=== PATIENT | female | born 1985 | race Two or more races ===

== ENCOUNTER 2018-12-11 10:04 | Inpatient (IN) | payer MEDICAID, OTHER ==
[~2018-12-11] VITALS: Ht 154.9 cm; Wt 83.0 kg
[2018-12-11] MEDS ORDERED: NEWBORN KIT ONE (10:22)
[2018-12-11] MEDS ORDERED: OXYTOCIN 30U/ 0.9% NaCL 500ML 500 ML ONE (10:22)
[2018-12-11] MEDS ORDERED: SODIUM CITRATE/CITRIC ACID 15 ML UDC PO ONE (10:30)
[2018-12-11] MEDS ORDERED: LACTATED RINGERS 1,000 ML IVBOLUS ONE (10:30)
[2018-12-11] MEDS ORDERED: METOCLOPRAMIDE 5 MG/ML, 2ML IV ONE (10:30)
[2018-12-11] MEDS ORDERED: SODIUM CITRATE/CITRIC ACID 15 ML UDC ONE (10:37)
[2018-12-11] MEDS ORDERED: METOCLOPRAMIDE 5 MG/ML, 2ML ONE (10:37)
[2018-12-11 10:41] LABS: BASOPHILS # (AUTO) 0.03 x10^3/uL (0-0.1); BASOPHILS % (AUTO) 0 % (0-1); EOSINOPHILS # (AUTO) 0.01 x10^3/uL (0-0.4); EOSINOPHILS % (AUTO) 0 % (1-7); LYMPHOCYTES # (AUTO) 2.31 x10^3/uL (1-3.4); LYMPHOCYTES % (AUTO) 28 % (22-44); MD NO; MEAN CORPUSCULAR HEMOGLOBIN 31.4 pg (27.0-34.8); MEAN CORPUSCULAR HGB CONC 33.2 g/dL (32.4-35.8); MEAN CORPUSCULAR VOLUME 94.4 fL (80-100); MEAN PLATELET VOLUME 9.4 fL (7.4-10.4); MONOCYTES # (AUTO) 0.47 x10^3/uL (0.2-0.8); MONOCYTES % (AUTO) 6 % (2-9); NEUTROPHILS # (AUTO) 5.39 x10^3/uL (1.8-6.8); NEUTROPHILS % (AUTO) 66 % (42-75); PLATELET COUNT 218 x10^3/uL (130-400); RED BLOOD COUNT 4.13 x10^6/uL (3.82-5.3); RED CELL DISTRIBUTION WIDTH 13.1 % (9.6-15.2)
[2018-12-11] MEDS ORDERED: morphine SULFATE/PF 1 MG/ML, 10ML ONE (11:55)
[2018-12-11] MEDS ORDERED: ONDANSETRON 2MG/ML, 2ML ONE (12:02)
[2018-12-11] MEDS ORDERED: CEFAZOLIN 1,000 MG ONE (12:02)
[2018-12-11] MEDS ORDERED: WATER-INJECTION,STERILE 10 ML IV ONE (12:02)
[2018-12-11] MEDS ORDERED: OXYTOCIN 10 UNITS/ML, 1ML ONE (12:02)
[2018-12-11] MEDS ORDERED: DEXAMETHASONE 4 MG/ML, 1ML ONE (12:02)
[2018-12-11] MEDS ORDERED: SODIUM CHLORIDE 0.9% PF 10ML ONE (12:18)
[2018-12-11] MEDS ORDERED: PHENYLEPHRINE 10 MG/ML ONE (12:18)
[2018-12-11] MEDS ORDERED: LACTATED RINGERS 1,000 ML IV SCH (13:16)
[2018-12-11] MEDS ORDERED: ONDANSETRON 2MG/ML, 2ML IV PRN (13:30)
[2018-12-11] MEDS ORDERED: MISOPROSTOL 200 MCG TABLET PR PRN (13:30)
[2018-12-11] MEDS ORDERED: MORPHINE SULFATE 4 MG/ML, 1ML IVPush PRN (13:30)
[2018-12-11] MEDS ORDERED: DIPHENHYDRAMINE 50 MG/ML, 1ML ONE (13:45)
[2018-12-11] MEDS ORDERED: KETOROLAC 30 MG/1 ML ONE (13:45)
[2018-12-11] MEDS: KETOROLAC 30 MG/1 ML IV SCH ×2 (13:58→20:27)
[2018-12-11] MEDS ORDERED: NO SEDATIVES, TRANQUILIZERS OR ANTIEMETICS XX SCH (14:30)
[2018-12-11] MEDS ORDERED: NALOXONE 0.4 MG/ML, 1ML IV PRN (14:30)
[2018-12-11] MEDS ORDERED: DIPHENHYDRAMINE 50 MG/ML, 1ML IVPush ONE (14:30)
[2018-12-11] MEDS ORDERED: EPHEDRINE 50 MG/ML, 1ML IVPush PRN (14:30)
[2018-12-11] MEDS ORDERED: DIPHENHYDRAMINE 50 MG/ML, 1ML IV PRN ×2 (14:30→20:30)
[2018-12-11] MEDS: LACTATED RINGERS 1,000 ML IV SCH ×2 (14:31→23:16)
[2018-12-11] MEDS: OXYTOCIN 30U/ 0.9% NaCL 500ML 500 ML IV SCH ×2 (14:31→23:16)
[2018-12-11 16:32] VITALS: BP 127/81
[2018-12-11] MEDS: OXYcodone/APAP 5/325MG TABLET PO PRN ×2 (17:55→22:06)
[2018-12-11 19:40] VITALS: BP 138/89
[2018-12-12 00:05] VITALS: BP 121/74
[2018-12-12] MEDS: KETOROLAC 30 MG/1 ML IV SCH ×4 (01:37→20:05)
[2018-12-12] MEDS: OXYcodone/APAP 5/325MG TABLET PO PRN ×4 (02:49→21:21)
[2018-12-12 04:22] VITALS: BP 121/75
[2018-12-12] MEDS: PRENATAL VIT/IRON/FA 1 EACH TABLET PO SCH (07:33)
[2018-12-12 07:35] VITALS: BP 118/79
[2018-12-12 08:18] LABS: BASOPHILS # (AUTO) 0.04 x10^3/uL (0-0.1); BASOPHILS % (AUTO) 1 % (0-1); EOSINOPHILS # (AUTO) 0.02 x10^3/uL (0-0.4); EOSINOPHILS % (AUTO) 0 % (1-7); LYMPHOCYTES # (AUTO) 2.25 x10^3/uL (1-3.4); LYMPHOCYTES % (AUTO) 26 % (22-44); MD NO; MEAN CORPUSCULAR HGB CONC 33.3 g/dL (32.4-35.8); MEAN CORPUSCULAR VOLUME 93.1 fL (80-100); MEAN PLATELET VOLUME 9.1 fL (7.4-10.4); MONOCYTES # (AUTO) 0.67 x10^3/uL (0.2-0.8); MONOCYTES % (AUTO) 8 % (2-9); NEUTROPHILS # (AUTO) 5.67 x10^3/uL (1.8-6.8); NEUTROPHILS % (AUTO) 66 % (42-75); PLATELET COUNT 171 x10^3/uL (130-400); RED BLOOD COUNT 3.33 x10^6/uL (3.82-5.3)
[2018-12-12 09:00] LABS: RED CELL DISTRIBUTION WIDTH 13.2 % (9.6-15.2)
[2018-12-12] MEDS: LACTATED RINGERS 1,000 ML IV SCH ×2 (09:16→19:16)
[2018-12-12] MEDS: OXYTOCIN 30U/ 0.9% NaCL 500ML 500 ML IV SCH ×2 (09:16→19:18)
[2018-12-12 12:25] VITALS: BP 125/88
[2018-12-12] MEDS: OXYcodone IR 5MG TABLET PO PRN (12:57)
[2018-12-12] MEDS ORDERED: DIPH,PERTUSS(ACELL),TET VAC/PF NC IM-VACC ONE ×2 (19:57→20:00)
[2018-12-12 20:15] VITALS: BP 119/75
[2018-12-13] MEDS: KETOROLAC 30 MG/1 ML IV SCH ×2 (01:20→08:10)
[2018-12-13] MEDS: OXYcodone/APAP 5/325MG TABLET PO PRN ×4 (02:12→16:17)
[2018-12-13] MEDS: LACTATED RINGERS 1,000 ML IV SCH (06:31)
[2018-12-13] MEDS: OXYTOCIN 30U/ 0.9% NaCL 500ML 500 ML IV SCH (06:31)
[2018-12-13 07:38] VITALS: BP 128/83
[2018-12-13] MEDS: DOCUSATE 100 MG CAPSULE PO PRN ×2 (08:10→20:56)
[2018-12-13] MEDS: PRENATAL VIT/IRON/FA 1 EACH TABLET PO SCH (08:10)
[2018-12-13] MEDS ORDERED: IBUPROFEN 600 MG TABLET PO PRN (14:00)
[2018-12-13] MEDS ORDERED: KETOROLAC 30 MG/1 ML ONE (15:18)
[2018-12-13 15:20] VITALS: BP 129/82
[2018-12-13] MEDS ORDERED: BUTALB/APAP/CAFFEINE 50MG/325MG/40MG PO PRN (16:30)
[2018-12-13] MEDS ORDERED: OXYcodone 5 MG/5 ML ORAL.SOL UDC PO PRN (17:00)
[2018-12-13] MEDS: OXYcodone IR 5MG TABLET PO PRN (20:51)
[2018-12-13] MEDS: ACETAMINOPHEN 325 MG TABLET PO PRN ×2 (20:51→20:56)
[2018-12-14 01:24] VITALS: BP 126/83
[2018-12-14] MEDS: ACETAMINOPHEN 325 MG TABLET PO PRN ×2 (01:49→06:07)
[2018-12-14] MEDS: OXYcodone IR 5MG TABLET PO PRN ×4 (01:49→14:36)
[2018-12-14 08:03] VITALS: BP 122/80
[2018-12-14] MEDS: DOCUSATE 100 MG CAPSULE PO PRN (09:36)
[2018-12-14] MEDS: PRENATAL VIT/IRON/FA 1 EACH TABLET PO SCH (09:36)
[2018-12-14] MEDS ORDERED: IBUP-1222 PO (13:44)
[2018-12-14] MEDS ORDERED: OXYC-302 PO (13:45)
== END 2018-12-14 15:02 | disposition home or self-care (01) | DRG 784 ==
LOC: LDIP 10:04 → 2NW 14:49
PROVIDERS: ADMIT Obstetrics & Gynecology; ATTEND Obstetrics & Gynecology
PROC: 10D00Z1 Extraction of Products of Conception, Low, Open Approach (ICD-10-PCS; principal; 2018-12-11)
PROC: 0UB70ZZ Excision of Bilateral Fallopian Tubes, Open Approach (ICD-10-PCS; 2018-12-11)
DX: O34.211 Maternal care for low transverse scar from previous cesarean delivery (principal); O99.354 Diseases of the nervous system complicating childbirth; Z37.0 Single live birth; Z3A.39 39 weeks gestation of pregnancy; G43.909 Migraine, unspecified, not intractable, without status migrainosus
CPT/HCPCS: 36415; 85025; 86850; 86900; 88302; 90715; G0378; J0690; J1100; J1885; J2274; J2405; J1200; J2370; J2590; J2765; J7120

== ENCOUNTER 2018-12-28 15:20 | Emergency (ER) | payer MEDICAID ==
[~2018-12-28] VITALS: Ht 157.5 cm; Wt 74.9 kg
[~2018-12-28 15:20] MED LIST: IBUP-1222 PO; OXYC-302 PO
--- NOTE | 2018-12-28 15:35 | NUR ---
PT AMBULATORY FROM LOBBY TO ROOM.
[2018-12-28 15:48] LABS: BASOPHILS # (AUTO) 0.07 x10^3/uL (0-0.1); BASOPHILS % (AUTO) 1 % (0-1); EOSINOPHILS # (AUTO) 0.23 x10^3/uL (0-0.4); EOSINOPHILS % (AUTO) 3 % (1-7); LYMPHOCYTES # (AUTO) 2.75 x10^3/uL (1-3.4); LYMPHOCYTES % (AUTO) 37 % (22-44); MD NO; MEAN CORPUSCULAR HEMOGLOBIN 30.5 pg (27.0-34.8); MEAN CORPUSCULAR HGB CONC 33.4 g/dL (32.4-35.8); MEAN CORPUSCULAR VOLUME 91.4 fL (80-100); MEAN PLATELET VOLUME 7.6 fL (7.4-10.4); MONOCYTES # (AUTO) 0.47 x10^3/uL (0.2-0.8); MONOCYTES % (AUTO) 6 % (2-9); NEUTROPHILS # (AUTO) 3.94 x10^3/uL (1.8-6.8); NEUTROPHILS % (AUTO) 53 % (42-75); PLATELET COUNT 398 x10^3/uL (130-400); RED BLOOD COUNT 4.45 x10^6/uL (3.82-5.3)
[2018-12-28 16:00] LABS: ALBUMIN 3.5 g/dL (3.4-5.0); ANION GAP 6 mmol/L (5-15); CHLORIDE 109 mmol/L (98-107)
--- NOTE | 2018-12-28 16:00 | NUR ---
PT PLACED ON HEART MONITOR, BP CUFF, PULSE OX. PT ASX AT THIS TIME. VSS/UPDATED IN COMPUTER. URINE COLLECTED/SENT TO LAB.
[2018-12-28 16:08] LABS: ALANINE AMINOTRANSFERASE 16 U/L (12-78); ALKALINE PHOSPHATASE 127 U/L (45-117); BILIRUBIN,TOTAL 0.6 mg/dL (0.2-1.0); CREATININE 1.08 mg/dL (0.55-1.02); TOTAL PROTEIN 8.2 g/dL (6.4-8.2); TROPONIN I < 0.015 ng/mL (0.000-0.045)
[2018-12-28 16:23] LABS: MICROSCOPIC INDICATED
--- NOTE | 2018-12-28 17:03 | NUR ---
ALL RESULTS BACK, PT FOR RECHECK.
--- NOTE | 2018-12-28 17:36 | NUR ---
MED REQUEST SENT.
[2018-12-28] MEDS ORDERED: LABETALOL 100 MG TABLET PO ONE (18:00)
--- NOTE | 2018-12-28 18:08 | NUR ---
MED GIVEN PER ERP ORDER. CONTINUE TO MONITOR PT FOR BP IMPROVEMENT/OR REACTION.
[2018-12-28 18:54] VITALS: BP 141/90
== END 2018-12-28 18:56 | disposition home or self-care (01) ==
LOC: ED 17:50
DX: I10 Essential (primary) hypertension (principal); Z91.048 Other nonmedicinal substance allergy status; Z88.8 Allergy status to other drugs, medicaments and biological substances
CPT/HCPCS: 36415; 71045; 80053; 81001; 83880; 84484; 84550; 85025; 93005; 99284

== ENCOUNTER 2019-01-11 00:42 | Emergency (ER) | payer MEDICAID ==
[~2019-01-11] VITALS: Ht 157.5 cm; Wt 75.3 kg
[2019-01-11 00:45] VITALS: BP 151/102
[2019-01-11] MEDS ORDERED: LIDOCAINE-MPF 1%, 5ML INFIL ONE (01:00)
[2019-01-11] MEDS ORDERED: DEXAMETHASONE 4 MG TABLET PO ONE (01:30)
[2019-01-11] MEDS ORDERED: PROMETHAZINE 25 MG/ML, 1ML IM ONE (01:30)
[2019-01-11] MEDS ORDERED: KETOROLAC 30 MG/1 ML IM ONE (01:30)
[2019-01-11] MEDS ORDERED: DIPHENHYDRAMINE 25 MG CAPSULE PO ONE (01:30)
[2019-01-11] MEDS ORDERED: LIDOCAINE-MPF 2% ,5ML INFIL ONE (02:00)
--- NOTE | 2019-01-11 02:06 | NUR ---
PT AWARE OF NEED OF URINE SAMPLE.
[2019-01-11] MEDS ORDERED: PROMETHAZINE 25 MG/ML, 1ML ONE (02:35)
[2019-01-11] MEDS ORDERED: DEXAMETHASONE 4 MG TABLET ONE (02:35)
[2019-01-11] MEDS ORDERED: KETOROLAC 30 MG/1 ML ONE (02:35)
[2019-01-11] MEDS ORDERED: DIPHENHYDRAMINE 25 MG CAPSULE ONE (02:35)
== END 2019-01-11 03:03 | disposition home or self-care (01) ==
LOC: ED 01:49
DX: G43.C0 Periodic headache syndromes in child or adult, not intractable (principal); I10 Essential (primary) hypertension
CPT/HCPCS: 20552; 93005; 96372; 99284; J1885; J2550; Q0163